=== PATIENT | female | born 1970 | race Two or more races ===

== ENCOUNTER 2017-11-01 08:51 | Emergency (ER) | payer OTHER ==
[2017-11-01] MEDS ORDERED: MAG HYDROX/AL HYDROX/SIMETH 30 ML UDC PO STA (11:06)
[2017-11-01] MEDS ORDERED: FAMOTIDINE 20 MG/50 ML 50 ML IV ONE (11:06)
[2017-11-01] MEDS ORDERED: SODIUM CHLORIDE 0.9% 1,000 ML IV ONE (11:06)
[2017-11-01] MEDS ORDERED: LIDOCAINE VISCOUS 2% 15 ML UDC MM STA (11:07)
[2017-11-01] MEDS ORDERED: SUCRALFATE 1 GM/10 ML UDC PO STA (11:07)
--- NOTE | 2017-11-01 11:09 | ED Physician Documentation ---
PD HPI ABD PAIN - Stated complaint Stated Complaint: BILAT ARM NUMBNESS/NAUSEA - Chief complaint Chief Complaint: Abd Pain - History obtained from History obtained from: Patient - History of Present Illness Timing - onset: How many days ago (2) Timing - duration: Days (2) Timing - details: Gradual onset, Still present Quality: Sharp, Pain Location: Epigastric Radiation: Chest Improved by: Meds Associated symptoms: Nausea Similar symptoms before: Diagnosis (peptic ulcer disease) Recently seen: Not recently seen - Additional information Additional information: 47-year-old type II diabetic female had some [place] food 3 nights ago and she began to feel not so well following that. She has had some upset stomach some nausea and epigastric pain and she is now feeling dehydrated. She has had some leg cramping and some numbness and tingling to her fingertips. She did register high blood sugars. She has had a prior history of ulcer and she no longer takes any ibuprofen or Aleve. She has been taking her Prilosec and this does not seem to be helping. She does acknowledge consumption of wine prior to this occurring and on the following day and felt that this likely exacerbated her stomach pains. She does not drink very often and was celebrating a move. Review of Systems Constitutional: denies: Fever Eyes: denies: Decreased vision Ears: denies: Ear pain Nose: denies: Rhinorrhea / runny nose, Congestion Throat: denies: Sore throat Cardiac: denies: Chest pain / pressure, Palpitations Respiratory: denies: Dyspnea, Cough GI: reports: Abdominal Pain, Nausea : denies: Dysuria, Frequency Skin: denies: Rash Musculoskeletal: reports: Extremity pain. denies: Neck pain, Back pain Neurologic: reports: Generalized weakness. 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 - Present Medications Home Medications: Ambulatory Orders Medication Instructions Recorded Confirmed Citalopram [CeleXA] 20 mg ORAL DAILY 11/10/13 06/28/14 Liraglutide [Victoza 2-Ajay] 0.6 mg SUBQ DAILY 11/10/13 06/28/14 Simvastatin 20 mg ORAL DAILY 11/10/13 06/28/14 metFORMIN [Glucophage] 850 mg ORAL BID 11/10/13 06/28/14 Hydrocodone/Acetaminophen 1 - 2 each PO Q6H PRN #15 tablet 06/28/14 [Hydrocodon-Acetaminophen 5-325] Pioglitazone HCl [Actos] 15 mg PO DAILY 06/28/14 06/28/14 Sucralfate [Carafate] 1 gm PO ACHS #30 tablet 11/01/17 - Allergies Allergies/Adverse Reactions: Allergies Allergy/AdvReac Type Severity Reaction Status Date / Time codeine AdvReac Nausea Verified 06/28/14 09:00 - Social History Does the pt smoke?: No Smoking Status: Never smoker Does the pt drink ETOH?: Yes Does the pt have substance abuse?: No - Immunizations Immunizations are current?: Yes - POLST Patient has POLST: No PD ED PE NORMAL - Vitals Vital signs reviewed: Yes (normal ) - General General: Alert and oriented X 3, No acute distress, Well developed/nourished - HEENT HEENT: Atraumatic, PERRL, EOMI - Neck Neck: Supple, no meningeal sign - Cardiac Cardiac: RRR, No murmur - Respiratory Respiratory: No respiratory distress, Clear bilaterally - Abdomen Abdomen: Soft, Other (epigastric tenderness without garding or rebound. ) - Back Back: No CVA TTP, No spinal TTP - Derm Derm: Normal color, Warm and dry, No rash - Extremities Extremities: No deformity, No edema - Neuro Neuro: Alert and oriented X 3, No motor deficit, No sensory deficit, Normal speech Eye Opening: Spontaneous Motor: Obeys Commands Verbal: Oriented GCS Score: 15 - Psych Psych: Normal mood, Normal affect Results - Vitals Vitals: Vital Signs - 24 hr 11/01/17 11/01/17 09:20 11:52 Temperature 36.9 C Heart Rate 84 81 Respiratory 16 16 Rate Blood Pressure 112/62 125/70 O2 Saturation 99 96 Oxygen O2 Source Room air - EKG (time done) 0928 Rate: Rate (enter#) (78) Rhythm: NSR QRS: Low voltage Compare to prior EKG: Old EKG unavailable Computer interpretation: Agree with computer - Labs Labs: Laboratory Tests 11/01/17 11/01/17 11/01/17 11:20 11:25 11:25 WBC 7.5 RBC 4.75 Hgb 11.8 L Hct 37.6 MCV 79.2 L MCH 24.8 L MCHC 31.3 L RDW 17.6 H Plt Count 380 MPV 8.3 Neut # (Auto) 3.7 Lymph # (Auto) 3.2 [place] # (Auto) 0.4 Eos # (Auto) 0.1 Baso # (Auto) 0.1 Absolute Nucleated RBC 0.00 Nucleated RBC % 0.1 Sodium 135 Potassium 4.2 Chloride 103 Carbon Dioxide 26 Anion Gap 6.0 BUN 6 Creatinine 0.5 Estimated GFR (MDRD) 132 Glucose 134 H Calcium 8.9 Total Bilirubin 0.9 AST 28 ALT 24 Alkaline Phosphatase 53 Troponin I Total Protein 7.8 Albumin 4.1 Globulin 3.7 Albumin/Globulin Ratio 1.1 Lipase 46 Urine Color YELLOW Urine Clarity CLEAR Urine pH 7.5 Ur Specific [place] 1.010 Urine Protein NEGATIVE Urine Glucose (UA) NEGATIVE Urine Ketones NEGATIVE Urine Occult Blood NEGATIVE Urine Nitrite NEGATIVE Urine Bilirubin NEGATIVE Urine Urobilinogen 0.2 (NORMAL) Ur Leukocyte Esterase NEGATIVE Ur Microscopic Review NOT INDICATED Urine Culture Comments NOT INDICATED Urine HCG, Qual NEGATIVE 11/01/17 11:25 WBC RBC Hgb Hct MCV MCH MCHC RDW Plt Count MPV Neut # (Auto) Lymph # (Auto) [place] # (Auto) Eos # (Auto) Baso # (Auto) Absolute Nucleated RBC Nucleated RBC % Sodium Potassium Chloride Carbon Dioxide Anion Gap BUN Creatinine Estimated GFR (MDRD) Glucose Calcium Total Bilirubin AST ALT Alkaline Phosphatase Troponin I < 0.04 Total Protein Albumin Globulin Albumin/Globulin Ratio Lipase Urine Color Urine Clarity Urine pH Ur Specific [place] Urine Protein Urine Glucose (UA) Urine Ketones Urine Occult Blood Urine Nitrite Urine Bilirubin Urine Urobilinogen Ur Leukocyte Esterase Ur Microscopic Review Urine Culture Comments Urine HCG, Qual Procedures - IVC sono (time) 1100 Bedside IVC sono: IVC measures (cm) (0.97), IVC collapsed c insp (cm) (complete) , Dehydration (est 1-1.5 liter deficit.) PD MEDICAL DECISION MAKING - ED course Complexity details: reviewed results, re-evaluated patient, considered differential, d/w patient ED course: 47-year-old female with epigastric pain and a feeling of lightheaded and dizziness is dehydrated on interrogation the inferior vena cava and she improves with her pain with the use of a GI cocktail consisting of viscous lidocaine Mylanta and Carafate. I suspect she has some alcohol induced gastritis I discussed these findings with the patient and recommend that she go on a H2 stephanie for the next 10 days as well as the carafate. - Sepsis Event Vital Signs: Vital Signs - 24 hr 11/01/17 11/01/17 09:20 11:52 Temperature 36.9 C Heart Rate 84 81 Respiratory 16 16 Rate Blood Pressure 112/62 125/70 O2 Saturation 99 96 Oxygen O2 Source Room air Departure - Departure Disposition: Home, Self Care Clinical Impression: Gastritis Qualifiers: Gastritis type: unspecified gastritis Chronicity: acute Gastritis bleeding: without bleeding Qualified Code(s): K29.00 - Acute gastritis without bleeding Condition: Stable Instructions: ED PUD Vs Gastritis Follow-Up: Vilma Galindo ARNP [Primary Care Provider] - Prescriptions: Sucralfate [Carafate] 1 gm PO ACHS #30 tablet Comments: Today it appears your stomach pain is related to gastritis or irritation of the lining of the stomach related to alcohol. My recommendation is to avoid the use of alcohol and for the next week take the Carafate as prescribed before meals and at bedtime. In addition use Pepcid AC twice per day available over- the-counter. Forms: Activity restrictions
[2017-11-01 11:37] LABS: BASOPHILS # (AUTO) 0.1 10^3/uL (0.0-0.1); BASOPHILS % (AUTO) 0.9 %; EOSINOPHILS # (AUTO) 0.1 10^3/uL (0.0-0.7); EOSINOPHILS % (AUTO) 1.9 %; HGB - HEMOGLOBIN 11.8 g/dL (12.0-16.0); LYMPHOCYTES # (AUTO) 3.2 10^3/uL (1.5-3.5); LYMPHOCYTES % (AUTO) 42.7 %; MEAN CORPUSCULAR HEMOGLOBIN 24.8 pg (27.0-31.0); MEAN CORPUSCULAR HGB CONC 31.3 g/dL (32.0-36.0); MEAN CORPUSCULAR VOLUME 79.2 fL (81.0-99.0); MEAN PLATELET VOLUME 8.3 fL (7.9-10.8); MONOCYTES # (AUTO) 0.4 10^3/uL (0.0-1.0); MONOCYTES % (AUTO) 5.3 %; NEUTROPHILS # (AUTO) 3.7 10^3/uL (1.5-6.6); NEUTROPHILS % (AUTO) 49.2 %; PLT - PLATELET COUNT 380 10^3/uL (130-450); RED BLOOD COUNT 4.75 10^6/uL (4.20-5.40); RED CELL DISTRIBUTION WIDTH 17.6 % (12.0-15.0); WHITE BLOOD COUNT 7.5 x10^3/uL (4.8-10.8)
[2017-11-01 11:49] LABS: ALBUMIN 4.1 g/dL (3.2-5.5); ALBUMIN/GLOBULIN RATIO 1.1 (1.0-2.2); BILIRUBIN,TOTAL 0.9 mg/dL (0.2-1.0); CALCIUM 8.9 mg/dL (8.5-10.3); CREATININE 0.5 mg/dL (0.4-1.0); TOTAL PROTEIN 7.8 g/dL (6.7-8.2)
[2017-11-01 11:53] VITALS: BP 125/70
[2017-11-01 11:58] LABS: BILIRUBIN,URINE NEGATIVE (NEGATIVE); CLARITY,URINE CLEAR (CLEAR); GLUCOSE, URINE (UA) NEGATIVE (NEGATIVE); KETONES,URINE (UA) NEGATIVE (NEGATIVE); LEUKOCYTE ESTERASE, URINE NEGATIVE (NEGATIVE); NITRITE,URINE NEGATIVE (NEGATIVE); OCCULT BLOOD,URINE NEGATIVE (NEGATIVE); PH,URINE 7.5 PH (5.0-7.5); PROTEIN,URINE NEGATIVE (NEGATIVE); UROBILINOGEN,URINE 0.2 (NORMAL) E.U./dL (NORMAL)
[2017-11-01 11:59] LABS: HCG UR QUAL NEGATIVE
== END 2017-11-01 14:15 | disposition home or self-care (01) ==
LOC: ED 08:51
DX: K29.00 Acute gastritis without bleeding (principal); R42 Dizziness and giddiness; E11.9 Type 2 diabetes mellitus without complications; Z79.84 Long term (current) use of oral hypoglycemic drugs
CPT/HCPCS: 36415; 80053; 81003; 81025; 83690; 84484; 85025; 93005; 96365; 99283; A9270; 81001; 87086

== ENCOUNTER 2018-01-09 12:31 | Emergency (ER) | payer OTHER ==
[2018-01-09 12:44] VITALS: BP 122/55
--- NOTE | 2018-01-09 14:15 | ED Physician Documentation ---
PD HPI URI - Stated complaint Stated Complaint: SOA/CONGESTION - Chief complaint Chief Complaint: Resp - History obtained from History obtained from: Patient, Family - History of Present Illness Timing - onset: How many days ago (4) Timing duration: Days (4) Timing details: Gradual onset, Still present Associated symptoms: Fever, Chills, Sweats, Nasal congestion, Rhinorrhea, Sore throat, Dry cough Contributing factors: Sick contact Improves by: Rest, Medication Similar symptoms before: Diagnosis (pneumonia) Recently seen: Not recently seen - Additional information Additional information: 47-year-old female with a prior history of pneumonia has developed a cough congestion fever loss of energy and difficult breathing. She states this started out with what felt like swallowing glass and she lost her voice she suddenly developed the fever and cough and she has lost her energy. Review of Systems Constitutional: reports: Fever, Chills, Myalgias, Fatigue Eyes: denies: Decreased vision Ears: denies: Ear pain Nose: reports: Rhinorrhea / runny nose, Congestion Throat: denies: Oral lesions / sores Cardiac: denies: Chest pain / pressure, Palpitations Respiratory: reports: Dyspnea, Cough. 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 - Present Medications Home Medications: Ambulatory Orders Medication Instructions Recorded Confirmed Citalopram [CeleXA] 20 mg ORAL DAILY 11/10/13 06/28/14 Liraglutide [Victoza 2-Ajay] 0.6 mg SUBQ DAILY 11/10/13 06/28/14 Simvastatin 20 mg ORAL DAILY 11/10/13 06/28/14 metFORMIN [Glucophage] 850 mg ORAL BID 11/10/13 06/28/14 Azithromycin [Zithromax] 250 mg PO DAILY #6 tablet 01/09/18 - Allergies Allergies/Adverse Reactions: Allergies Allergy/AdvReac Type Severity Reaction Status Date / Time codeine AdvReac Nausea Verified 01/09/18 12:46 - Social History Does the pt smoke?: No Smoking Status: Never smoker Does the pt drink ETOH?: Yes Does the pt have substance abuse?: No - Immunizations Immunizations are current?: Yes - POLST Patient has POLST: No PD ED PE NORMAL - Vitals Vital signs reviewed: Yes (normal ) - General General: Alert and oriented X 3, No acute distress, Well developed/nourished - HEENT HEENT: Atraumatic, PERRL, EOMI, Ears normal, Pharynx benign, Other (dry mucous membranes) - Neck Neck: Supple, no meningeal sign, No bony TTP - Cardiac Cardiac: RRR, No murmur - Respiratory Respiratory: No respiratory distress, Clear bilaterally - Abdomen Abdomen: Soft, Non tender - Back Back: No CVA TTP, No spinal TTP - Derm Derm: Normal color, Warm and dry, No rash - Extremities Extremities: No deformity, No edema - Neuro Neuro: Alert and oriented X 3, clerk stenographer 2-12 intact, No motor deficit, No sensory deficit, Normal speech Eye Opening: Spontaneous Motor: Obeys Commands Verbal: Oriented GCS Score: 15 - Psych Psych: Normal mood, Normal affect Results - Vitals Vitals: Vital Signs - 24 hr 01/09/18 01/09/18 12:42 12:45 Temperature 36.5 C Heart Rate 88 Respiratory 16 Rate Blood Pressure 122/55 L O2 Saturation 98 Oxygen O2 Source Room air - Rads (name of study) 2 veiw chest Radiology: Prelim report reviewed (Impression: 1. Ill-defined mild airspace density left midlung, question pneumonia or atelectasis.), EMP read contemporaneously (looks like a subtle infiltrate on the right in the middle .) PD MEDICAL DECISION MAKING - ED course Complexity details: reviewed old records, reviewed results, re-evaluated patient , considered differential, d/w patient, d/w family ED course: 47-year-old female with a cough and congestion appears to have pneumonia on her chest x-ray and this does fit with her clinical history. She is administered dexamethasone 10 mg orally and Rocephin 1 g IM and we will place her on some azithromycin. - Sepsis Event Vital Signs: Vital Signs - 24 hr 01/09/18 01/09/18 12:42 12:45 Temperature 36.5 C Heart Rate 88 Respiratory 16 Rate Blood Pressure 122/55 L O2 Saturation 98 Oxygen O2 Source Room air Departure - Departure Disposition: Home, Self Care Clinical Impression: Pneumonia Qualifiers: Pneumonia type: due to unspecified organism Laterality: right Lung location: middle lobe of lung Qualified Code(s): J18.1 - Lobar pneumonia, unspecified organism Condition: Stable Instructions: ED Pneumonia Adult Follow-Up: Vilma Galindo ARNP [Primary Care Provider] - Prescriptions: Azithromycin [Zithromax] 250 mg PO DAILY #6 tablet Forms: Activity restrictions
[2018-01-09] MEDS ORDERED: DEXAMETHASONE 10 MG/ML VIAL PO STA (14:16)
[2018-01-09] MEDS ORDERED: cefTRIAXone 1 GM VIAL IM STA (14:16)
[2018-01-09] MEDS ORDERED: LIDOCAINE 1% 2 ML VIAL SUBQ ONE (14:16)
[2018-01-09] MEDS ORDERED: CHERRY SYRUP 10 ML UDC PO ONE (14:19)
--- NOTE | 2018-01-09 14:22 | XRAY Report ---
Reason: SOA Procedure Date: 01/09/2018 Accession Number: [id number] / [id number] Procedure: XR - Chest 2 View X-Ray CPT Code: 98045 FULL RESULT: EXAM: CHEST RADIOGRAPHY EXAM DATE: 01/09/2018 01:47 PM. CLINICAL HISTORY: SOA. COMPARISON: None. TECHNIQUE: 2 views. FINDINGS: Lungs/Pleura: There is a vague asymmetric airspace density in the left mid lung, lateral to the left hilum. No consolidative process. The right lung is clear. No pleural effusion or pneumothorax. Mediastinum: Heart and mediastinal contours are unremarkable. Other: None. IMPRESSION: 1. Ill-defined mild airspace density left midlung, question pneumonia or atelectasis. RADIA
== END 2018-01-09 14:43 | disposition home or self-care (01) ==
LOC: ED 12:31
DX: J18.1 Lobar pneumonia, unspecified organism (principal)
CPT/HCPCS: 71046; 96372; 99282; 99283; A9270

== ENCOUNTER 2018-07-19 08:03 | Emergency (ER) | payer OTHER ==
[2018-07-19 08:22] VITALS: BP 111/58
--- NOTE | 2018-07-19 08:56 | ED Physician Documentation ---
History of Present Illness - Stated complaint Stated Complaint: MED REACTION - Chief complaint Chief Complaint: Allergic Rx - History obtained from History obtained from: Patient - History of Present Illness Timing: How many weeks ago (1) Pain level max: 0 Pain level now: 0 - Additonal information Additional information: 48-year-old female, diabetic recently started on long-acting insulin, since that time is developed a rash over her body. They stopped the insulin a week ago but is still having the rash. Is taking Zyrtec without relief. No difficulty breathing. It is itching. Nothing makes it better or worse. No recent travel. No new soaps, detergents, pets etc. 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: section - Present Medications Home Medications: Ambulatory Orders Medication Instructions Recorded Confirmed Citalopram [CeleXA] 20 mg ORAL DAILY 11/10/13 06/28/14 Liraglutide [Victoza 2-Ajay] 0.6 mg SUBQ DAILY 11/10/13 06/28/14 Simvastatin 20 mg ORAL DAILY 11/10/13 06/28/14 metFORMIN [Glucophage] 850 mg ORAL BID 11/10/13 06/28/14 Azithromycin [Zithromax] 250 mg PO DAILY #6 tablet 01/09/18 predniSONE [Deltasone] 10 mg PO [id number] #42 tab 07/19/18 - Allergies Allergies/Adverse Reactions: Allergies Allergy/AdvReac Type Severity Reaction Status Date / Time exenatide [From Bydureon] Allergy Hives Verified 07/19/18 08:28 codeine AdvReac Nausea Verified 07/19/18 08:22 - Social History Does the pt smoke?: No Smoking Status: Never smoker Does the pt drink ETOH?: Yes Does the pt have substance abuse?: No - Immunizations Immunizations are current?: Yes - POLST Patient has POLST: No PD ED PE NORMAL - Vitals Vital signs reviewed: Yes - General General: Alert and oriented X 3, No acute distress - HEENT HEENT: Moist mucous membranes - Neck Neck: Supple, no meningeal sign - Cardiac Cardiac: RRR - Respiratory Respiratory: No respiratory distress, Clear bilaterally - Abdomen Abdomen: Soft, Non tender, Non distended - Derm Derm: Warm and dry, Other (diffuse macular exanthem, blanches easily.) - Neuro Neuro: Alert and oriented X 3 Results - Vitals Vitals: Vital Signs - 24 hr 07/19/18 08:19 Temperature 36.8 C Heart Rate 74 Respiratory 18 Rate Blood Pressure 111/58 L O2 Saturation 99 Oxygen O2 Source Room air PD MEDICAL DECISION MAKING - ED course Complexity details: considered differential, d/w patient ED course: Patient with a rash of unclear etiology. Will trial on steroids and follow-up with her PCP. Patient counseled regarding signs and symptoms for which I believe and urgent re-evaluation would be necessary. Patient with good understanding of and agreement to plan and is comfortable going home at this time This document was made in part using voice recognition software. While efforts are made to proofread this document, sound alike and grammatical errors may oc cur. Departure - Departure Disposition: 01 Home, Self Care Clinical Impression: Dermatitis Condition: Good Instructions: ED Allergic Reaction General Other Follow-Up: Vilma Galindo ARNP [Primary Care Provider] - Within 1 week Prescriptions: predniSONE [Deltasone] 10 mg PO [id number] #42 tab Comments: Take the medications until gone. Return if you worsen. Follow-up with your doctor for further care. It is unclear what you are allergic to, follow-up with your doctor for further testing Discharge Date/Time: 07/19/18 09:34
== END 2018-07-19 09:34 | disposition home or self-care (01) ==
LOC: ED 08:03
DX: L30.9 Dermatitis, unspecified (principal); E11.9 Type 2 diabetes mellitus without complications; Z79.84 Long term (current) use of oral hypoglycemic drugs
CPT/HCPCS: 99283

== ENCOUNTER 2020-04-21 16:04 | Emergency (ER) | payer OTHER ==
[2020-04-21 16:10] VITALS: BP 132/69
[2020-04-21] MEDS ORDERED: ALBUTEROL 1 PUFF INH STA (16:24)
[2020-04-21] MEDS ORDERED: predniSONE 20 MG TABLET PO STA (16:24)
--- NOTE | 2020-04-21 16:26 | ED Physician Documentation ---
PD HPI DYSPNEA - Stated complaint Stated Complaint: ASTHMA - Chief complaint Chief Complaint: Resp - History obtained from History obtained from: Patient - History of Present Illness Timing - onset: Today Timing - onset during: Rest Timing - duration: Days (1) Timing - details: Gradual onset Pain level max: 0 Pain level now: 0 Improved by: Rest Worsened by: Exertion, Laying flat Associated symptoms: Cough, Wheezing. No: Fever - Additional information Additional information: 49-year-old female presents to the emergency department with a history of asthma. She states she is currently out of her inhaler. She states she was cleaning around a lot of dust the other day and now has increased wheezing and difficulty breathing. 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: section - Present Medications Home Medications: Ambulatory Orders Medication Instructions Recorded Confirmed Citalopram [CeleXA] 20 mg ORAL DAILY 11/10/13 04/21/20 Liraglutide [Victoza 2-Ajay] 0.6 mg SUBQ DAILY 11/10/13 04/21/20 metFORMIN [Glucophage] 850 mg ORAL BID 11/10/13 04/21/20 Albuterol Sulfate [Proair Hfa 1 - 2 puffs INH Q4H PRN #1 inhaler 04/21/20 Inhaler] predniSONE [Deltasone] 10 mg PO [id number] #42 tab 04/21/20 - Allergies Allergies/Adverse Reactions: Allergies Allergy/AdvReac Type Severity Reaction Status Date / Time exenatide [From Bydureon] Allergy Hives Verified 04/21/20 16:10 codeine AdvReac Nausea Verified 04/21/20 16:10 - Social History Does the pt smoke?: No Smoking Status: Never smoker Does the pt drink ETOH?: Yes Does the pt have substance abuse?: No - Immunizations Immunizations are current?: Yes - POLST Patient has POLST: No PD ED PE NORMAL - Vitals Vital signs reviewed: Yes - General General: Alert and oriented X 3, No acute distress - HEENT HEENT: Moist mucous membranes - Neck Neck: Supple, no meningeal sign - Cardiac Cardiac: RRR - Respiratory Respiratory: Other (mild wheezing B, no stridor. no resp distress. ) - Derm Derm: Warm and dry - Neuro Neuro: Alert and oriented X 3 - Psych Psych: Normal mood, Normal affect Results - Vitals Vitals: Vital Signs - 24 hr 04/21/20 16:07 Temperature 36.2 C L Heart Rate 93 Respiratory 16 Rate Blood Pressure 132/69 H O2 Saturation 98 Oxygen O2 Source Room air PD MEDICAL DECISION MAKING - ED course Complexity details: considered differential, d/w patient ED course: Patient feels better after albuterol here. Will prescribe prednisone for home. Patient is well appearing, non-toxic. Afebrile. No hypoxia. Patient counseled regarding signs and symptoms for which I believe and urgent re-evaluation would be necessary. Patient with good understanding of and agreement to plan and is comfortable going home at this time This document was made in part using voice recognition software. While efforts are made to proofread this document, sound alike and grammatical errors may occur. Departure - Departure Disposition: 01 Home, Self Care Clinical Impression: Asthma exacerbation Qualifiers: Asthma severity: unspecified severity Asthma persistence: unspecified Qualified Code(s): J45.901 - Unspecified asthma with (acute) exacerbation Condition: Good Instructions: ED Reactive Airway Disease Follow-Up: Oleg Abreu MD [Primary Care Provider] - Within 1 week Prescriptions: predniSONE [Deltasone] 10 mg PO [id number] #42 tab Albuterol Sulfate [Proair Hfa Inhaler] 1 - 2 puffs INH Q4H PRN #1 inhaler PRN Reason: Shortness Of Air/Wheezing Comments: Use the inhaler as prescribed. You should use a spacer with the inhaler as well. Return if you worsen. Follow-up with your doctor as needed for further care.
== END 2020-04-21 16:58 | disposition home or self-care (01) ==
LOC: ED 16:04
DX: J45.901 Unspecified asthma with (acute) exacerbation (principal); E11.9 Type 2 diabetes mellitus without complications; Z79.84 Long term (current) use of oral hypoglycemic drugs
CPT/HCPCS: 94640; 94664; 99283; 99284; J7512

== ENCOUNTER 2022-04-04 20:19 | Emergency (ER) | payer OTHER ==
--- NOTE | 2022-04-04 21:30 | ED Physician Documentation ---
History of Present Illness - Stated complaint Stated Complaint: TIGHT CHEST,ITCHY THROAT - Chief complaint Chief Complaint: Resp - History obtained from History obtained from: Patient - History of Present Illness Timing: How many days ago (2) Pain level max: 0 Pain level now: 0 Improved by: no ameliorating factors Worsened by: no exacerbating factors - Additonal information Additional information: c/o 2 days of dyspnea, dry cough, "itchy throat" (per patient), chest feels tight and constricted. symptoms have some similarity to previous allergy symptoms but typically resolve with benadryl (the symptoms she has had x 2 days have not improved with benadryl). Denies fever, myalgias, BLOOM. Review of Systems Constitutional: denies: Fever Ears: denies: Ear pain Nose: reports: Reviewed and negative Throat: denies: Sore throat Cardiac: reports: Chest pain / pressure (tightness). 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 - Present Medications Home Medications: Ambulatory Orders Medication Instructions Recorded Confirmed Citalopram [CeleXA] 20 mg ORAL DAILY 11/10/13 04/21/20 Liraglutide [Victoza 2-Ajay] 0.6 mg SUBQ DAILY 11/10/13 04/21/20 metFORMIN [Glucophage] 850 mg ORAL BID 11/10/13 04/21/20 Albuterol Sulfate [Proair Hfa 1 - 2 puffs INH Q4H PRN #1 inhaler 04/21/20 Inhaler] predniSONE [Deltasone] 10 mg PO [id number] #42 tab 04/21/20 Albuterol Sulf [Ventolin Hfa 1 - 2 puffs INH Q4HR PRN #1 each 04/04/22 Inhaler] predniSONE [Deltasone] 40 mg PO DAILY 3 Days #6 tablet 04/04/22 - Allergies Allergies/Adverse Reactions: Allergies Allergy/AdvReac Type Severity Reaction Status Date / Time exenatide [From [facility]] Allergy Hives Verified 04/04/22 20:39 codeine AdvReac Nausea Verified 04/04/22 20:39 - Social History Does the pt smoke?: No Smoking Status: Never smoker Does the pt drink ETOH?: Yes Does the pt have substance abuse?: No - Immunizations Immunizations are current?: Yes - POLST Patient has POLST: No PD ED PE NORMAL - Vitals Vital signs reviewed: Yes - General General: Alert and oriented X 3, No acute distress, Well developed/nourished - HEENT HEENT: Pharynx benign - Cardiac Cardiac: RRR, No murmur, No gallop, No rub - Respiratory Respiratory: No respiratory distress, Other (bilateral diffuse end-expiratory wheezing) - Abdomen Abdomen: Soft, Non tender Results - Vitals Vitals: Oxygen O2 Source Room air - EKG (time done) No standard instances Rate: Rate (enter#) (66) Rhythm: NSR [place]: Normal Intervals: Normal [place] QRS: Low voltage Ischemia: Normal ST segments - Labs Labs: Laboratory Tests 04/04/22 19:55 Nasal Adenovirus (PCR) NOT DETECTED Nasal B. parapertussis DNA (PCR) NOT DETECTED Nasal Coronavir 229E PCR NOT DETECTED Nasal Coronavir HKU1 PCR NOT DETECTED Nasal Coronavir NL63 PCR NOT DETECTED Nasal Coronavir OC43 PCR NOT DETECTED Nasal Enterovir/Rhinovir PCR NOT DETECTED Nasal Influenza B PCR NOT DETECTED Nasal Influenza A PCR NOT DETECTED Nasal Parainfluen 1 PCR NOT DETECTED Nasal Parainfluen 2 PCR NOT DETECTED Nasal Parainfluen 3 PCR NOT DETECTED Nasal Parainfluen 4 PCR NOT DETECTED Nasal RSV (PCR) NOT DETECTED Nasal B.pertussis DNA PCR NOT DETECTED Nasal C.pneumoniae (PCR) NOT DETECTED Earle Human Metapneumo PCR NOT DETECTED Nasal M.pneumoniae (PCR) NOT DETECTED Nasal SARS-CoV-2 (PCR) NOT DETECTED - Rads (name of study) chest xray Radiology: Prelim report reviewed, See rad report PD MEDICAL DECISION MAKING - ED course Complexity details: reviewed results, re-evaluated patient, considered differential, d/w patient ED course: Given duoneb and PO prednisone. After duoneb, her coughing is nearly resolved (frequent bronchospastic coughing during H+P, often triggered when asked to take deep breath in). Her lungs are CTA bilaterally on reexam. NAD on CXR. EKG without concerning findings. Respiratory PCR panel is negative for viruses tested. Suspect bronchitis with bronchospasm. Rx for prednisone e-prescribed to her pharmacy of choice Departure - Departure Disposition: 01 Home, Self Care Clinical Impression: Bronchitis with bronchospasm Condition: Good Instructions: ED Bronchitis Asthmatic Follow-Up: NEREYDA SÁNCHEZ PA [Primary Care Provider] - Prescriptions: Albuterol Sulf [Ventolin Hfa Inhaler] 1 - 2 puffs INH Q4HR PRN #1 each PRN Reason: Shortness Of Air/Wheezing predniSONE [Deltasone] 40 mg PO DAILY 3 Days #6 tablet Comments: Your chest xray, EKG, and viral tests are all normal/negative. Based on your symptoms and findings on exam (decreased breath sounds with coughing when taking a deep breath), I suspect you have an upper respiratory infection that is setting off bronchospasm (narrowing of the upper airways similar to an asthma attack), which results in coughing, difficulty breathing, and wheezing. I have prescribed a few days of prednisone (steroid) and an albuterol inhaler for you (electronically submitted to the [facility] pharmacy in [place]). As we discussed, amongst other possible causes of your symptoms is allergic reaction (such as an environmental allergy); this diagnosis would benefit from the same medications. Discharge Date/Time: 04/04/22 23:30
[2022-04-04] MEDS: IPRATROPIUM/ALBUTEROL 3 ML NEB INH STA (22:00)
--- NOTE | 2022-04-04 22:33 | XRAY Report ---
PROCEDURE: Chest 2 View X-Ray INDICATIONS: dyspnea, cough, chest tightness TECHNIQUE: 2 views of the chest were acquired. COMPARISON: CXR 01/09/2018. FINDINGS: Surgical changes and devices: Cholecystectomy clips. Lungs and pleura: No pleural effusions or pneumothorax. Lungs are clear. Mediastinum: Mediastinal contours are normal. Heart size is normal. Bones and chest wall: No suspicious bony abnormalities. Soft tissues appear unremarkable. IMPRESSION: No acute cardiopulmonary abnormality. Reviewed by: Eddie Crowder MD on 04/04/2022 10:31 PM PST Approved by: Eddie Crowder MD on 04/04/2022 10:31 PM PST Station ID: [id number]
[2022-04-04 22:55] LABS: B. PARAPERTUSSIS- RESP PCR PAN NOT DETECTED; B. PERTUSSIS- RESP PCR PANEL NOT DETECTED; C. PNEUMONIAE- RESP PCR PANEL NOT DETECTED; CORONAVIRUS 229E-RESP PCR NOT DETECTED; CORONAVIRUS HKU1-RESP PCR NOT DETECTED; CORONAVIRUS NL63-RESP PCR NOT DETECTED; CORONAVIRUS OC43-RESP PCR NOT DETECTED; HUMAN METAPNEUMOVIRUS NOT DETECTED; INFLUENZA A- RESP PCR PANEL NOT DETECTED; INFLUENZA B - RESP PCR PANEL NOT DETECTED; M. PNEUMONIAE- RESP PCR PANEL NOT DETECTED; PARAINFLUENZA VIRUS 1 NOT DETECTED; PARAINFLUENZA VIRUS 2 NOT DETECTED; PARAINFLUENZA VIRUS 3 NOT DETECTED; PARAINFLUENZA VIRUS 4 NOT DETECTED; RHINOVIRUS/ENTEROVIRUS NOT DETECTED; RSV- RESP PCR PANEL NOT DETECTED; SARS-CoV-2 -RESP PCR PANEL NOT DETECTED
[2022-04-04] MEDS: predniSONE 20 MG TABLET PO STA (23:24)
[2022-04-04 23:30] VITALS: BP 125/72
== END 2022-04-04 23:30 | disposition home or self-care (01) ==
LOC: ED 20:19
DX: J40 Bronchitis, not specified as acute or chronic (principal); J98.01 Acute bronchospasm; Z20.822 Contact with and (suspected) exposure to COVID-19
CPT/HCPCS: 71046; 87633; 93005; 94640; 99283; J7512